=== PATIENT | female | born 1985 | race Caucasian/White ===

== ENCOUNTER → 2016-10-18 | Outpatient (CLI) | payer OTHER ==
[2016-10-18 14:57] LABS: URINE APPEARANCE CLEAR (CLEAR); URINE BILIRUBIN NEG (NEG); URINE COLOR YELLOW; URINE EPITHELIAL CELL AUTO 0-5 /lpf (0-5); URINE NITRITE NEG (NEG); URINE SPECIFIC GRAVITY 1.015 (1.000-1.030); UROBILINOGEN NEG (NEG)
[2016-10-18 14:58] LABS: MANUAL MICROSCOPIC REQUIRED? NO; REVIEW REQ? NO
== END | disposition home or self-care (01) ==
LOC: C.LABSPEC 13:48
PROVIDERS: ATTEND Obstetrics & Gynecology
DX: Z34.01 Encounter for supervision of normal first pregnancy, first trimester (principal)

== ENCOUNTER → 2016-10-20 | Outpatient (CLI) | payer OTHER ==
[2016-10-20 10:05] LABS: BASO % 0.6 %; BASO ABS # 0.05 K/uL (0-0.2); COMPLETE YES; EOS % 2.6 %; HEMATOCRIT 40.3 % (37-47); IG% 0.2 %; LYMPH % 24.7 %; LYMPH ABS # 2.08 K/uL (1.2-3.4); MEAN CELL VOLUME 86.7 fL (80-100); MEAN CORPUSCULAR HGB CONC 35.7 g/dl (32-36); MONO % 9.2 %; NEUT % 62.7 %; PLATELET COUNT 279 K/uL (130-400); RED BLOOD COUNT 4.65 M/uL (4.2-5.4); WHITE BLOOD COUNT 8.41 K/uL (4.8-10.8)
[2016-10-24 01:44] LABS: CHLAMYDIA TRACH RNA*** NOT DETECTED (NOT DETECTED); GC (NEIS GONORRHOEAE)RNA** NOT DETECTED (NOT DETECTED)
== END | disposition home or self-care (01) ==
LOC: C.LAB1850 09:06
PROVIDERS: ATTEND Obstetrics & Gynecology
DX: Z13.228 Encounter for screening for other metabolic disorders (principal)

== ENCOUNTER → 2016-10-20 | Outpatient (CLI) | payer OTHER | END | disposition home or self-care (01) | LOC: C.LAB1850 09:14 | PROVIDERS: ATTEND Obstetrics & Gynecology | DX: Z34.01 Encounter for supervision of normal first pregnancy, first trimester (principal); Z13.228 Encounter for screening for other metabolic disorders ==

== ENCOUNTER → 2017-03-14 | Outpatient (CLI) | payer OTHER ==
[~2017-03-14] MED LIST: PREN-63
== END | disposition home or self-care (01) ==
LOC: C.LABSPEC 13:21
PROVIDERS: ATTEND Obstetrics & Gynecology
DX: Z34.02 Encounter for supervision of normal first pregnancy, second trimester (principal)

== ENCOUNTER → 2017-03-14 | Outpatient (CLI) | payer OTHER ==
[2017-03-14 14:37] LABS: HEMATOCRIT 40.8 % (37-47); HEMOGLOBIN 14.2 g/dL (12.0-16.0)
== END | disposition home or self-care (01) ==
LOC: C.LAB1850 12:11
PROVIDERS: ATTEND Obstetrics & Gynecology
DX: Z34.02 Encounter for supervision of normal first pregnancy, second trimester (principal)

== ENCOUNTER → 2017-05-10 | Outpatient (CLI) | payer OTHER | END | disposition home or self-care (01) | LOC: C.LABSPEC 13:34 | PROVIDERS: ATTEND Obstetrics & Gynecology | DX: Z34.03 Encounter for supervision of normal first pregnancy, third trimester (principal); Z3A.00 Weeks of gestation of pregnancy not specified ==

== ENCOUNTER 2017-06-04 18:11 | Inpatient (IN) | payer OTHER ==
[~2017-06-04] VITALS: Ht 157.5 cm; Wt 77.7 kg
[2017-06-04] MEDS ORDERED: PREN-63 (18:32)
[2017-06-04 18:33] VITALS: Ht 157.5 cm; Wt 77.7 kg
[2017-06-04] MEDS ORDERED: LACTATED RINGER'S 1000ML 1,000 ML IV PRN (19:11)
[2017-06-04] MEDS ORDERED: PENICILLIN G POTASSIUM IV 3 MU in DEXTROSE 5% 100ML 100 ML IV PRN (19:15)
[2017-06-04] MEDS ORDERED: PENICILLIN G POTASSIUM IV 6 MU in DEXTROSE 5% 250ML 250 ML IV ONE (19:30)
[2017-06-04 19:40] LABS: HEMATOCRIT 42.4 % (37-47); HEMOGLOBIN 15.4 g/dL (12.0-16.0); MEAN CELL VOLUME 87.8 fL (80-100); MEAN CORPUSCULAR HEMOGLOBIN 31.9 pg (25-34); MEAN CORPUSCULAR HGB CONC 36.3 g/dl (32-36); MEAN PLATELET VOLUME 8.9 fL (7.4-10.4); PLATELET COUNT 277 K/uL (130-400); RED CELL DISTRIBUTION WIDTH SD 41.9 fL (36.4-46.3); WHITE BLOOD COUNT 16.92 K/uL (4.8-10.8)
[2017-06-04] MEDS: LACTATED RINGER'S 1000ML 1,000 ML IV SCH ×2 (19:42→19:45)
[2017-06-04] MEDS ORDERED: BUPIVACAINE 0.25% 30 ML VIAL ONE (19:43)
[2017-06-04] MEDS ORDERED: EpHEDrine SULFATE INJ 50 MG/ML AMP ONE (19:43)
[2017-06-04] MEDS ORDERED: FENTANYL CITRATE INJ 50 MCG/1 ML 2 ML VIAL ONE (19:44)
[2017-06-04] MEDS ORDERED: FENTANYL 2MCG/ML ROPIV 1.25MG/ML 100ML BAG EPI ONE (19:44)
[2017-06-04] MEDS ORDERED: LACTATED RINGER'S 1000ML 500 ML IV PRN (20:14)
[2017-06-04] MEDS ORDERED: NALOXONE HCL INJ 1 MG in SODIUM CHLORIDE 0.9% 1000ML 1,000 ML IV PRN ×4 (20:14)
[2017-06-04] MEDS ORDERED: PROMETHAZINE HCL INJ 25 MG in SODIUM CHLORIDE 0.9% 50ML 50 ML IV PRN (20:15)
[2017-06-04] MEDS ORDERED: FENTANYL 2MCG/ML ROPIV 1.25MG/ML 100ML BAG EPI PRN (20:15)
[2017-06-04] MEDS ORDERED: ONDANSETRON INJ 2 MG/ML 2 ML VIAL IV PRN (20:15)
[2017-06-04] MEDS ORDERED: EpHEDrine SULFATE INJ 50 MG/ML AMP IV PRN (20:15)
[2017-06-04] MEDS ORDERED: NALBUPHINE HCL INJ 10 MG/ML AMP IV PRN (20:15)
[2017-06-04] MEDS ORDERED: DiphenhydrAMINE HCL 50 MG/ML VIAL IV PRN (20:15)
[2017-06-04] MEDS ORDERED: NALOXONE HCL INJ 0.4 MG/1 ML VIAL/CARP IV PRN (20:15)
[2017-06-04] MEDS ORDERED: METOCLOPRAMIDE HCL INJ 20 MG in SODIUM CHLORIDE 0.9% 50ML 50 ML IV PRN (20:15)
[2017-06-04] MEDS ORDERED: OXYTOCIN 30 UNITS/500ML NSS IV ONE (21:31)
[2017-06-04] MEDS ORDERED: ACETAMINOPHEN 325 MG TAB PO PRN (22:00)
[2017-06-04] MEDS ORDERED: HYDROCORTISONE ACETATE 25 MG SUPP PR PRN (22:00)
[2017-06-04] MEDS ORDERED: OXYTOCIN 30 UNITS/500ML NSS IV PRN (22:00)
[2017-06-04] MEDS ORDERED: LANOLIN OINT EXT PRN (22:00)
[2017-06-04] MEDS ORDERED: DIPHTHERIA/TETANUS/PERTUSSIS 0.5 ML SYR/VIAL IM. ONE (22:00)
[2017-06-04] MEDS ORDERED: BENZOCAINE 20% AER SPR 82.5 GM CAN EXT PRN (22:00)
[2017-06-04] MEDS ORDERED: ACETAMINOPHEN/CODEINE 300/30MG TAB PO PRN ×2 (22:00)
[2017-06-04] MEDS ORDERED: SUPERCREAM 0.870 % 15GM JAR EXT PRN (22:00)
--- NOTE | 2017-06-04 22:48 | DELIVERY SUMMARY ---
DATE OF OPERATION: 06/04/2017 FINDINGS: Viable female with Apgars of 9 and 10. Baby delivered over a midline second degree laceration with second degree left periurethral laceration. Cord gases and cord blood samples were obtained. Placenta delivered spontaneously. Lacerations were repaired with 4-0 Vicryl. Estimated blood loss 300 mL. LABOR NOTE: The patient is a 31-year-old 1, para 0 with an EDC of 04 June at 40 weeks gestational age who presented to labor and delivery in active labor. The patient states her contractions began around 1500 hours on day of delivery. She did not rupture her membranes or vaginal bleeding. The patient has had a benign course. Her blood type is A negative, antibody negative. She received RhoGAM on February 2017. She is rubella immune. She had a negative cell free DNA testing. She had a normal 1-hour Glucola and had a positive third trimester beta strep culture. Upon admission, the patient was 8 cm dilated, 100% effaced and 0 station. Tracing was category 1 with a positive GBS. She was started on penicillin 6 milliunit loading dose and 4 milliunits planned every 4 hours until delivery. She requested an epidural which was placed by anesthesia. Shortly after placing the epidural, the patient had a marked bradycardic episode for approximately 2 minutes. Examination showed the patient to be fully dilated, +2 station with bulging membranes. Only half the penicillin dose was in but because of the bradycardia a decision was made to proceed with artificial rupture of membranes. Light meconium was noted. Tracing returned to category 2 and the patient began her second stage. She pushed for approximately an hour delivering the viable female infant. The cord was clamped and cut. Cord blood samples, cord gas samples were obtained. Placenta was delivered spontaneously. Inspection of the perineum showed a left second degree periurethral tear and a midline second degree vaginal tear. Both tears were repaired with 4-0 Vicryl. Estimated blood loss was 300 mL. Sponge and needle count was correct. I attest to the content of the Intraoperative Record and any orders documented therein. Any exception s are noted below.
[2017-06-05] VITALS (7 sets, daily range): BP systolic 112–144; BP diastolic 67–82; PULSE 62–76; TEMP 36.5–37; O2SAT 95–96
[2017-06-05] MEDS: IBUPROFEN 600 MG TAB PO PRN ×4 (00:52→20:41)
--- NOTE | 2017-06-05 06:36 | Progress Note ---
Subjective Jun 05, 2017. Subjective conversation w/ patient, physical exam Ambulation: ambulating normally Voiding: no voiding problems Passing Gas: Yes Diet Tolerance: Regular Diet Lochia: Moderate Feeding Type: Breast Feeding Pain: minimal, well controlled Comment: pt seen and assessed at bedside; no acute events overnight Review of Systems Constitutional: No fever, No chills Respiratory: + problem reported (nasal congestion), No cough, No shortness of breath Cardiac: No chest pain, No edema Abdomen: No nausea, No vomiting Female : No dysuria no headaches or calf pain Objective Vital Signs Date Time Temp Pulse Resp B/P (MAP) Pulse Ox O2 Delivery O2 Flow Rate FiO2 06/05/17 03:45 36.8 62 18 114/67 (83) Room Air 06/05/17 00:40 Room Air 06/05/17 00:40 36.7 69 18 113/68 (83) Room Air Physical Exam General Appearance: WELL-APPEARING, WD/WN, NO APPARENT DISTRESS Respiratory/Chest: chest non-tender, lungs clear, normal breath sounds Cardiovascular: regular rate, rhythm, no edema, no murmur Abdomen: normal bowel sounds, non tender, soft Fundus: Firm, Non-Tender, Relation to Umbilicus (2-3 below) Extremities: normal range of motion, non-tender, normal inspection, no pedal edema, no calf tenderness Laboratory Results Last 24 Hours Test 06/04/17 19:26 06/05/17 04:44 White Blood Count 16.92 K/uL Red Blood Count 4.83 M/uL Hemoglobin 15.4 g/dL Hematocrit 42.4 % Mean Corpuscular Volume 87.8 fL Mean Corpuscular Hemoglobin 31.9 pg Mean Corpuscular Hemoglobin Concent 36.3 g/dl RDW Standard Deviation 41.9 fL RDW Coefficient of Variation 13.0 % Platelet Count 277 K/uL Mean Platelet Volume 8.9 fL Medications Current Inpatient Medications Medications (Trade) Dose Ordered Sig/Declan Route Start Time Stop Time Status Last Admin Dose Admin Lactated Ringer's 1,000 ml @ 125 mls/hr Q8H IV 06/04/17 19:11 06/06/17 19:10 06/04/17 19:45 125 MLS/HR Lactated Ringer's 1,000 ml @ 999 mls/hr Q1H1M PRN IV 06/04/17 19:11 07/04/17 19:10 Oxytocin (Pitocin IV) 30 units UD PRN IV 06/04/17 22:00 07/04/17 21:59 Benzocaine (Dermoplast Aero Spr) 1 appln PRN PRN EXT 06/04/17 22:00 07/04/17 21:59 06/05/17 00:51 82.5 APPLN Cocaine HCl (Supercream 0.870% Cr) BID PRN EXT 06/04/17 22:00 06/18/17 21:59 Hydrocortisone Acetate (Anusol Hc Supp) 25 mg BID PRN OK 06/04/17 22:00 07/04/17 21:59 Lanolin (Lanolin Oint) PRN PRN EXT 06/04/17 22:00 07/04/17 21:59 Prenat Multivit/ [place]/Iron/Folic Ac ( Vitamin Tab) 1 tab DAILY PO 06/05/17 08:00 07/05/17 07:59 Ibuprofen (Motrin Tab) 600 mg Q4H PRN PO 06/04/17 22:00 07/04/17 21:59 06/05/17 00:52 600 MG Acetaminophen (Tylenol Tab) 650 mg Q6H PRN PO 06/04/17 22:00 07/04/17 21:59 Acetaminophen/ Codeine Phosphate (Tylenol w/ Codeine #3 Tab) 1 tab Q4H PRN PO 06/04/17 22:00 07/04/17 21:59 Acetaminophen/ Codeine Phosphate (Tylenol w/ Codeine #3 Tab) 2 tab Q4H PRN PO 06/04/17 22:00 07/04/17 21:59 Bisacodyl (Dulcolax Tab) 5 mg 20 PO 06/05/17 20:00 06/05/17 20:01 Docusate Sodium (coLACE CAP) 100 mg BID PO 06/05/17 08:00 07/05/17 07:59 Ferrous Sulfate (Feosol Tab) 325 mg DAILY PO 06/05/17 08:00 07/05/17 07:59 Assessment and Plan Post- Day#: 1 Continue Routine Care: 31yo F PPD 1 s/p pt doing well clinically continue routine care encourage ambulation, breast feeding/first mom education on pain control with rx prn * pt requires rhogam * Resident Physician Supervision Note: I interviewed and examined the patient. Discussed with Dr. Bacon and agree with findings and plan as documented in the note. Any exceptions or clarifications are listed here: [None] Documented By: Lui Khalil Resident Tracking Resident Involvement: Resident Care Provided Care Provided: OB Delivery
--- NOTE | 2017-06-05 06:44 | Discharge Instructions ---
Discharge Instructions Date of Service Jun 05, 2017. Admission Reason for Admission: Rule Out Labor Discharge Discharge Diagnosis / Problem: s/p Discharge Goals Goal(s): Routine recovery after delivery Medications Continue Dispensed Medications: supercream, dermaplast, tucks, lansinoh Activity Recommendations Activity Limitations: per Instructions/Follow-up section . Instructions / Follow-Up Instructions / Follow-Up ACTIVITY RECOMMENDATIONS: * Gradual return to full activity over the next 2-3 weeks. * No lifting - nothing heavier than baby over the next 2-3 weeks. * Do not engage in vigorous exercise, sexual activity or sports until cleared by your physician. * Do not drive or operate any motorized equipment until cleared by your physician. * You may shower/bathe daily. MEDICATIONS: For discomfort or pain, you may use Acetaminophen (Tylenol), Ibuprofen (Advil), or Naproxen (Aleve) following the package directions. For constipation you may use Colace following the package directions. BREAST CARE: If you are not breast feeding: * Wear a supportive bra 24 hours a day for one to two weeks. * Avoid stimulating your breasts and nipples as much as possible during the first few weeks after delivery. * When taking a shower, have the warm water hit your back, not breasts. * When your breasts feel full, apply ice packs. Usually three to four times a day helps ease the discomfort. * Take a mild pain medication (Tylenol / Motrin) when you are uncomfortable. If breast feeding: * Use breast milk to lubricate nipples. Lansinoh cream may be used for sore nipples. You do not need to remove cream prior to breast feeding. If using a different brand of cream, check the label for directions regarding removal of cream prior to nursing. * Wear a supportive bra. * If having problems with breasts or breast feeding, call a salon sales consultant or your health care provider. EPISIOTOMY CARE: After delivery, if you have an episiotomy (stitches), the following steps will ease discomfort and aid healing. * For the first 24 hours after delivery, place ice packs next to your episiotomy to help reduce swelling. * After the first 24 hour-period, sitz baths, either portable or in the tub, are suggested. A shower with a shower arm sprayed over the episiotomy may be comforting. * [place] care should be done after each voiding and bowel movement. Squirt warm water from a plastic bottle over the perineum (region of the body between the anus and urinary opening) and pat dry. * Use Dermoplast to ease discomfort. Shake container. [place] directly over the episiotomy. Place a Tucks on a clean sanitary pad next to your episiotomy. SPECIAL CARE INSTRUCTIONS: When you are discharged from the hospital, it is important for you to follow the instructions listed below: * During the first week at home, you should be able to care for yourself and your baby. In addition, the usual light household activities are encouraged. * Limit your activities to the way you feel. Do not try to clean the house or move furniture. Be sensible. * If you actively engage in sports and have done so up until the time of your delivery, you may resume these activities as soon as you feel able. This may take up to one month or even longer. Use good judgment. * Continue to take your vitamins for at least six weeks after the of your baby. * Your diet need not be limited unless you were on a special diet before your delivery. Breast-feeding mothers need around 2500 calories per day and at least 64-80 ounces of fluid per day (8 to 10 glasses). * You should eat foods from the four major food groups. Crash diets or fad diets are to be avoided. Eating lean meats, fresh fruits and vegetables, low-fat dairy products, high fiber foods and a regular exercise program, will help you get back to your pre- weight without putting your health at risk. * Constipation is sometimes a problem after delivery. Take a mild laxative as needed. If breast feeding, Milk of Magnesia is acceptable to use. You may use a suppository or Fleets enema if no episiotomy. * A daily shower or tub bath is suggested. Be sure to thoroughly and gently dry the perineum. * A bloody vaginal discharge will usually continue until around four weeks post . A small amount of bleeding may continue for as long as six weeks. Vaginal discharge changes from the bright red bleeding after delivery to pink then brownish and finally yellowish-pink before becoming white and disappearing. * Bleeding may increase with activity. Your first period may come in 4-8 weeks. If you are breast feeding, your period may be delayed even longer. * Tye (sex) can begin whenever both you and your partner feel comfortable and do not have any form of genital infection. It is recommended that you wait at least six weeks for internal and external healing to occur. If you have questions, please talk to your health care practitioner. A condom should be used to prevent infection and . * Foreplay, gentle intercourse and lubrication is very important the first several times to prevent pain. A water-based lubricant such as K-Y jelly or Astroglide may be used. * If you have RH negative blood and your baby is RH positive, you will receive RHOGAM by injection prior to discharge. The nurse will give you a card to keep with you that has the date and place that you received RHOGAM after delivery. * During your care, you had a Rubella screen done to check for the presence of rubella antibodies in your blood. If your test was negative, you will receive a Rubella vaccine prior to discharge. This vaccine may cause a fever, soreness at the injection site and flu-like symptoms. If these symptoms persist, notify your health care practitioner. is not advised for one month after a Rubella vaccine. * Verbalizes understanding of car seat law as reviewed with patient nursing. * Car Seat hand-out given and reviewed with patient by nursing. * Shaken baby information reviewed with patient by nursing. Call you doctor if: * Heavy bleeding (saturating several pads an hour) or passing clots the size of your fist. * A fever >101 degrees F (38.3 degrees C) on two occasions four hours apart and /or chills. * Unusual pain in the pelvic or vaginal areas. * "Baby Blues" lasting longer than two weeks. If you have any questions or concerns, call your health care practitioner at . FOLLOW UP VISIT: * Please call the office at to schedule a 6 week examination. It is important you keep this appointment. It is important for you to make arrangements for either yearly or twice yearly check-ups thereafter. Current Hospital Diet Patient's current hospital diet: Regular OB Diet Discharge Diet Recommended Diet: Regular OB Diet Pending Studies Studies pending at discharge: no Medical Emergencies . Who to Call and When: Medical Emergencies: If at any time you feel your situation is an emergency, please call 911 immediately. . Non-Emergent Contact Non-Emergency issues call your: [facility] . . "Provider Documentation" section prepared by Lesia Bacon. .
--- NOTE | 2017-06-05 07:24 | Anesthesia Procedure Note ---
Anesthesia Epidural Removal Nt Date & Time Jun 05, 2017 at 07:24 Vital Signs Pain Intensity: 2.0 Vital Signs Past 12 Hours Date Time Temp Pulse Resp B/P (MAP) Pulse Ox O2 Delivery O2 Flow Rate FiO2 06/05/17 07:00 37.0 70 16 120/73 (89) 96 Room Air 06/05/17 03:45 36.8 62 18 114/67 (83) Room Air 06/05/17 00:40 Room Air 06/05/17 00:40 36.7 69 18 113/68 (83) Room Air Notes Mental Status: alert / awake / arousable, participated in evaluation Nausea / Vomiting: adequately controlled Pain: adequately controlled Airway Patency, RR, SpO2: stable & adequate BP & HR: stable & adequate Hydration State: stable & adequate Neuraxial Anesthesia: was administered Anesthetic Complications: no major complications apparent, pt satisfied with anesthetic care Epidural: removed without complications, with tip intact
[2017-06-05 08:09] LABS: HEMATOCRIT 34.6 % (37-47); HEMOGLOBIN 12.2 g/dL (12.0-16.0)
[2017-06-05] MEDS: DOCUSATE SODIUM 100 MG CAP PO SCH ×2 (08:41→19:35)
[2017-06-05] MEDS: FERROUS SULFATE 325 MG TAB PO SCH (08:41)
[2017-06-05] MEDS: PRENATAL VITAMIN TAB PO SCH (08:41)
[2017-06-05] MEDS ORDERED: BISACODYL 5 MG TABEC PO SCH (20:00)
[2017-06-06 04:00] VITALS: BP 114/77
--- NOTE | 2017-06-06 06:40 | Progress Note ---
Subjective Jun 06, 2017. Subjective conversation w/ patient, physical exam Ambulation: ambulating normally Voiding: no voiding problems Passing Gas: Yes Diet Tolerance: Regular Diet Lochia: Small Feeding Type: Breast Feeding Pain: minimal, well controlled Comment: pt seen and examined at bedside today; no acute events overnight Review of Systems Constitutional: + fatigue, No fever, No chills Respiratory: No cough, No shortness of breath Cardiac: No chest pain, No edema Abdomen: No nausea, No vomiting no headaches or calf pain Objective Vital Signs Date Time Temp Pulse Resp B/P (MAP) Pulse Ox O2 Delivery O2 Flow Rate FiO2 06/06/17 04:00 114/77 (89) 06/05/17 23:45 95 Room Air 06/05/17 23:45 36.6 68 18 144/82 (102) 95 Room Air 06/05/17 20:15 36.8 73 18 115/67 (83) Room Air 06/05/17 16:25 36.8 76 14 121/73 (89) Room Air 06/05/17 16:25 Room Air 06/05/17 11:00 36.5 71 18 112/70 (84) 96 Room Air 06/05/17 07:35 Room Air 06/05/17 07:00 37.0 70 16 120/73 (89) 96 Room Air Physical Exam General Appearance: WELL-APPEARING, WD/WN, NO APPARENT DISTRESS Respiratory/Chest: chest non-tender, lungs clear, normal breath sounds, no respiratory distress Cardiovascular: regular rate, rhythm, no edema, no murmur Abdomen: normal bowel sounds, non tender, soft Fundus: Firm, Non-Tender, Relation to Umbilicus (2-3 below) Extremities: normal range of motion, non-tender, normal inspection, no pedal edema, no calf tenderness Laboratory Results Last 24 Hours Test 06/05/17 07:24 Hemoglobin 12.2 g/dL Hematocrit 34.6 % Medications Current Inpatient Medications Medications (Trade) Dose Ordered Sig/Declan Route Start Time Stop Time Status Last Admin Dose Admin Lactated Ringer's 1,000 ml @ 125 mls/hr Q8H IV 06/04/17 19:11 06/06/17 19:10 06/04/17 19:45 125 MLS/HR Lactated Ringer's 1,000 ml @ 999 mls/hr Q1H1M PRN IV 06/04/17 19:11 07/04/17 19:10 Oxytocin (Pitocin IV) 30 units UD PRN IV 06/04/17 22:00 07/04/17 21:59 Benzocaine (Dermoplast Aero Spr) 1 appln PRN PRN EXT 06/04/17 22:00 07/04/17 21:59 06/05/17 00:51 82.5 APPLN Cocaine HCl (Supercream 0.870% Cr) BID PRN EXT 06/04/17 22:00 06/18/17 21:59 Hydrocortisone Acetate (Anusol Hc Supp) 25 mg BID PRN [place] 06/04/17 22:00 07/04/17 21:59 Lanolin (Lanolin Oint) PRN PRN EXT 06/04/17 22:00 07/04/17 21:59 Prenat Multivit/ [place]/Iron/Folic Ac ( Vitamin Tab) 1 tab DAILY PO 06/05/17 08:00 07/05/17 07:59 06/05/17 08:41 1 TAB Ibuprofen (Motrin Tab) 600 mg Q4H PRN PO 06/04/17 22:00 07/04/17 21:59 06/05/17 20:41 600 MG Acetaminophen (Tylenol Tab) 650 mg Q6H PRN PO 06/04/17 22:00 07/04/17 21:59 Acetaminophen/ Codeine Phosphate (Tylenol w/ Codeine #3 Tab) 1 tab Q4H PRN PO 06/04/17 22:00 07/04/17 21:59 Acetaminophen/ Codeine Phosphate (Tylenol w/ Codeine #3 Tab) 2 tab Q4H PRN PO 06/04/17 22:00 07/04/17 21:59 Docusate Sodium (coLACE CAP) 100 mg BID PO 06/05/17 08:00 07/05/17 07:59 06/05/17 19:35 100 MG Ferrous Sulfate (Feosol Tab) 325 mg DAILY PO 06/05/17 08:00 07/05/17 07:59 Assessment and Plan Post- Day#: 2 Continue Routine Care: 31 yo PPD 2 s/p Continue routine care. Encourage ambulation, encourage breast feeding/first mom education on . Pain control with rx prn Discharge instructions reviewed * pt requires rhogam * Resident Physician Supervision Note: I interviewed and examined the patient. Discussed with Dr. Bacon and agree with findings and plan as documented in the note. Any exceptions or clarifications are listed here: Doing well. Plan d/c. Instructions given. Documented By: Carissa Vance Resident Tracking Resident Involvement: Resident Care Provided Care Provided: OB Delivery
[2017-06-06 07:40] VITALS: BP 107/71; PULSE 69; TEMP 36.9; O2SAT 98
[2017-06-06] MEDS: DOCUSATE SODIUM 100 MG CAP PO SCH (08:21)
[2017-06-06] MEDS: PRENATAL VITAMIN TAB PO SCH (08:21)
[2017-06-06] MEDS: FERROUS SULFATE 325 MG TAB PO SCH (08:21)
[2017-06-06] MEDS: IBUPROFEN 600 MG TAB PO PRN (10:31)
[2017-06-06 16:00] VITALS: BP 119/73; PULSE 71; TEMP 36.8; O2SAT 97
[2017-06-06 18:00] VITALS: BP_DIAS 73; PULSE 71; TEMP 36.8
== END 2017-06-06 19:17 | disposition home or self-care (01) | DRG 775 ==
LOC: C.LD 18:11 → C.OPB 18:11 → C.LD 21:51 → C.OBG 06-05 00:43
PROVIDERS: ADMIT Obstetrics & Gynecology; ATTEND Obstetrics & Gynecology
PROC: 10E0XZZ Delivery of Products of Conception, External Approach (ICD-10-PCS; principal; 2017-06-04)
PROC: 0TQDXZZ Repair Urethra, External Approach (ICD-10-PCS; principal; 2017-06-04)
PROC: 0KQM0ZZ Repair Perineum Muscle, Open Approach (ICD-10-PCS; principal; 2017-06-04)
DX: O99.824 Streptococcus B carrier state complicating childbirth (principal); O70.1 Second degree perineal laceration during delivery; O71.82 Other specified trauma to perineum and vulva; R00.1 Bradycardia, unspecified; O77.0 Labor and delivery complicated by meconium in amniotic fluid; Z3A.40 40 weeks gestation of pregnancy; Z37.0 Single live birth